=== PATIENT | female | born 1975 | race Caucasian/White ===

== ENCOUNTER 2018-08-21 22:52 | Emergency (ER) | payer MEDICAID, SELFPAY ==
[2018-08-21 22:56] VITALS: BP 134/85; PULSE 99; RESP 18; TEMP 36.7; O2SAT 100; BMI 33.3
--- NOTE | 2018-08-21 23:12 | PC.NURSE ---
Pt reports pain in L ear for about 2wk, thought had a lump/pimple and tried to popped it. Now pt reports has purulent and odorous discharge. Denies hx of DM. +cervical lymphadenopathy
--- NOTE | 2018-08-21 23:36 | ED.EAR ---
HPI - Ear Problem General Chief complaint: Ear Stated complaint: LEFT EAR PAIN Time Seen by Provider: 08/21/18 23:05 Source: patient Mode of arrival: ambulatory Limitations: no limitations History of Present Illness HPI Narrative: Patient is a 43-year-old female who presents with left ear pain. She says she that there was a pimple on the outside of her ear she went around the outside of her ear with a sharp object is but she says she did not pop it. She did not put deep into her ear she did not touch her tympanic membrane. Been ongoing for a week and a half it is now swollen and drainage with foul smelling. MD Complaint: ear pain, ear discharge and decreased hearing Location: left ear Duration: constant Relieving factors: nothing Discharge from ear: yes - purulent Associated symptoms ear: decreased hearing Related Data Previous Rx's Medication Instructions Recorded clindamycin HCl 300 mg PO TID #21 cap 08/21/18 Allergies Allergy/AdvReac Type Severity Reaction Status Date / Time acetaminophen [From Vicodin] Allergy Verified 08/21/18 22:58 hydrocodone [From Vicodin] Allergy Verified 08/21/18 22:58 Penicillins Allergy Verified 08/21/18 22:58 Review of Systems Review of Systems GENERAL: Denies chills, fatigue, malaise, fever, sweats, travel HEENT: See HPI RESPIRATORY: Denies dyspnea, cough, wheezing, hemoptysis, sputum. CARDIOVASCULAR: Denies chest pain, palpitations, orthopnea, edema GASTROINTESTINAL: Denies nausea, vomiting, abdominal pain, diarrhea, constipation, melena. : Denies dysuria, frequency, incontinence, hematuria, urinary retention, flank pain. MUSCULOSKELETAL: Denies weakness, joint pain, or bony pain SKIN: No rash, no erythema, no pruritus NEUROLOGIC: Denies weakness, dizziness, headache, numbness, change in speech, confusion PSYCHIATRIC: No concerning psychosocial issues. 12 point review of systems is negative except for those stated above and HPI PFSH Social History Smoking Status: Current every day smoker Exam Initial Vital Signs Initial Vital Signs: Vital Signs Temperature 98.1 F 08/21/18 22:56 Pulse Rate 99 H 08/21/18 22:56 Respiratory Rate 18 08/21/18 22:56 Blood Pressure 134/85 08/21/18 22:56 Pulse Oximetry 100 08/21/18 22:56 Const General: cooperative, healthy appearing and comfortable Orientation: alert, awake and oriented x3 HENMT Ears: TM normal on the right, external ear abnormal (Significant swelling gross discharge minimal erythema) auricular tenderness on the left and pain with movement of external ear on the left; no auricular hematomas and unable to visualize TM on the left Neck Neck: normal visual inspection and no meningeal signs Chest Chest: normal inspection of the chest Resp Effort & Inspection: normal respiratory effort and able to speak in complete sentences Cardio Pulses: normal peripheral pulses Skin General: erythema (mild extra auricular on left. No abscess is no streaking) Course Orders Ordered: Discontinued Medications Clindamycin HCl (Cleocin) 300 mg PO NOW ONE Stop: 08/21/18 23:53 Last Admin: 08/22/18 00:02 Dose: 300 mg Neomycin/Polymyxin/Hydrocortisone (Cortisporin Otic) 4 drops EAR-LEFT NOW ONE Stop: 08/21/18 23:53 Last Admin: 08/22/18 00:03 Dose: 4 drops Vital Signs - 8 hr 08/21/18 22:56 08/22/18 00:13 Temperature 98.1 F Pulse Rate 99 H 98 H Respiratory Rate 18 16 Blood Pressure 134/85 Blood Pressure [Left Arm] 120/77 Pulse Oximetry 100 100 Medical Decision Making Lab Data Point of Care Testing Glucose POC 102 Point of care testing: Point of Care Testing Glucose POC 102 Discharge Plan Departure Patient Disposition: Home Clinical Impression: Otitis externa Discharge Date/Time: 08/22/18 00:14 Interventions: ED Discharge Assessment Last Done: 08/22/18 00:14 Instructions: Otitis Externa Activity Restrictions/Additional Instructions: *You have been diagnosed with otitis externa *What to do: Expect pain and swelling to improve over the next 2-3 days *Continue to take medications as directed Neomycin drops 4 drops 4 times daily Clindamycin 1 tablet 4 times a day *Follow up with your primary care provider in 2-3 days *Return to ER if you should have fever, increasing pain or any new, worsening or concerning symptoms Prescriptions: New clindamycin HCl 300 mg capsule 300 mg PO TID Qty: 21 RF: 0 Referrals: [facility] [Provider Group] [facility] [Provider Group]
[2018-08-22] MEDS: CLINDAMYCIN 150 MG CAPSULE 300 MG PO (00:02)
[2018-08-22] MEDS: NEOMY/POLYM B/HC OTIC 10 ML 4 DROPS EAR-LEFT (00:03)
[2018-08-22 00:13] VITALS: BP 120/77; PULSE 98; RESP 16; O2SAT 100
== END 2018-08-22 00:14 | disposition home or self-care (01) ==
PROVIDERS: Emergency Provider Emergency Medicine
DX: H60.92 Unspecified otitis externa, left ear (principal)
CPT/HCPCS: 82962; 99282; 99283